=== PATIENT | male | born 1950 | race Caucasian/White ===

== ENCOUNTER 2021-05-08 11:03 | Outpatient (CLI) | payer MEDICARE | END 2021-05-08 11:04 | disposition home or self-care (01) | LOC: DTY/OP 11:03 | PROVIDERS: ATTEND Family Medicine | DX: E11.9 Type 2 diabetes mellitus without complications (principal) | CPT/HCPCS: 97802 ==

== ENCOUNTER 2021-09-11 07:54 | Outpatient (CLI) | payer MEDICARE | END 2021-09-11 07:55 | disposition home or self-care (01) | LOC: SCSMRI 07:54 → BICMRI 07:55 | PROVIDERS: ATTEND Family Medicine | DX: M47.22 Other spondylosis with radiculopathy, cervical region (principal); M48.02 Spinal stenosis, cervical region | CPT/HCPCS: 72141 ==

== ENCOUNTER 2023-05-20 10:42 | Outpatient (CLI) | payer MEDICARE | END 2023-05-20 10:43 | disposition home or self-care (01) | LOC: BICMRI 10:42 | PROVIDERS: ATTEND Family Medicine | DX: M75.42 Impingement syndrome of left shoulder (principal); S43.402A Unspecified sprain of left shoulder joint, initial encounter; M75.102 Unspecified rotator cuff tear or rupture of left shoulder, not specified as traumatic; S46.212A Strain of muscle, fascia and tendon of other parts of biceps, left arm, initial encounter ==